=== PATIENT | male | born 1955 | race Caucasian/White ===

== ENCOUNTER 2016-12-30 22:54 | Emergency (ER) | payer SELFPAY ==
[2016-12-30] MEDS ORDERED: NS 0.9% 1000 ML* 1,000 ML IV ONE (23:48)
[2016-12-31 00:12] LABS: Hematocrit 42 % (42-52); Mean Corpuscular HGB Conc 36 g/dl (31-36); Mean Corpuscular Hemoglobin 32 pg (27-31); Mean Corpuscular Volume 89 fL (80-94); Mean Platelet Volume 9 um3 (7.4-10.4); Red Cell Distribution Width 14 % (10.5-15); White Blood Count 9.2 10^3/ul (3.5-10.8)
[2016-12-31 00:21] LABS: ALT 14 U/L (7-52); Albumin 4.3 g/dL (3.2-5.2); Alkaline Phosphatase 66 U/L (34-104); BUN/Creatinine Ratio 16.1 (8-20); Blood Urea Nitrogen 19 mg/dL (6-24); CO2 Carbon Dioxide 25 mmol/L (22-32); Calcium 9.3 mg/dL (8.6-10.3); Chloride 105 mmol/L (101-111); Globulin 2.6 g/dL (2-4); Glucose 141 mg/dL (70-100); Magnesium 2.5 mg/dL (1.9-2.7); Sodium 136 mmol/L (133-145); Total Protein 6.9 g/dL (6.4-8.9)
[2016-12-31 01:09] LABS: Anion Gap 6 mmol/L (2-11)
[2016-12-31 03:10] VITALS: BP 124/47
--- NOTE | 2016-12-31 03:44 | ED ---
Sally Day Rebecca, scribed for Connor Short MD on 12/30/16 at 2342 . Lower Extremity - HPI Summary HPI Summary: Pt is a 61 y/o M BIBA who presents to ED c/o L calf pain. Sx have been present intermittently for "quite a while," worsening tonight at approximately 2000. Pain is characterized as cramping and continues to be intermittent, ranked severe (8/10) upon triage and not present upon evaluation. Sx aggravated and alleviated by nothing and is not brought on by certain movements. Denies cold feet, abdominal pain and edema. There are no symptoms on the RLE. Pt is not on a diuretic. - History of Current Complaint Chief Complaint: EDExtremityLower Stated Complaint: LOWER LEG CRAMPS Time Seen by Provider: 12/30/16 23:37 Hx Obtained From: Patient Onset/Duration: Worse Since - Today Severity Initially: Severe Severity Currently: None Pain Intensity: 0 Pain Scale Used: 0-10 Numeric Timing: Intermittent Location: Is Discrete @ - L calf Character Of Pain: Spasmodic - Cramping Associated Signs And Symptoms: Negative: Swelling Aggravating Factor(s): Nothing Alleviating Factor(s): Nothing - Allergies/Home Medications Allergies/Adverse Reactions: Allergies Allergy/AdvReac Type Severity Reaction Status Date / Time No Known Allergies Allergy Verified 12/30/16 23:03 PMH/Surg Hx/FS Hx/Imm Hx Endocrine/Hematology History: Denies: Hx Diabetes Cardiovascular History: Denies: Hx Hypertension - Surgical History Surgery Procedure, Year, and Place: back 2008~ - Immunization History Date of Tetanus Vaccine: unk Date of Influenza Vaccine: none Infectious Disease History: No Infectious Disease History: Denies: History Other Infectious Disease, Traveled Outside the [place] in Last 30 Days - Family History Known Family History: Positive: Cardiac Disease, Hypertension - Social History Alcohol Use: None Substance Use Type: Reports: None Smoking Status (MU): Heavy Every Day Tobacco Smoker Amount Used/How Often: 1 PPD Review of Systems Negative: Abdominal Pain Positive: Myalgia - L calf cramping. Negative: Edema Positive: Other - NEGATIVE: cold feet All Other Systems Reviewed And Are Negative: Yes Physical Exam - Summary Physical Exam Summary: The patient is well-nourished in no acute distress and in no acute pain. The skin is warm and dry and skin color reflects adequate perfusion. HEENT: The head is normocephalic and atraumatic. The pupils are equal and reactive. The conjunctivae are clear and without drainage. Nares are patent and without drainage. Mouth reveals dry mucous membranes and the throat is without erythema and exudate. The external ears are intact. The ear canals are patent and without drainage. The tympanic membranes are intact. Neck is supple with full range of motion and non-tender. Respiratory: Chest is non-tender. Lungs are clear to auscultation and breath sounds are symmetrical and equal. Cardiovascular: Hear is regular rate and rhythm. There is no murmur or rub auscultated. There is no peripheral edema and pulses are symmetrical and equal. Abdomen: The abdomen is soft and non-tender with no bruits. There are normal bowel sounds heard in all four quadrants and there is no organomegaly palpated. Musculoskeletal: There is no back pain noted. Extremities are non-tender with full range of motion. There is good capillary refill. There is no peripheral edema. Symmetrical femoral pulses and good doralis pedis pulses and posterior tibial pulses. The foot is not cool t touch and has a good popliteal pulse with good capillary refill and FORM. The LLE is not swollen and not cyanotic. He did havesome involuntary twitching noted of his leg. Neurological: Patient is alert and oriented to person, place and time. The patient has symmetrical motor strength in all four extremities. Psychiatric: The patient has an appropriate affect and does not exhibit any anxiety or depression. Triage Information Reviewed: Yes Vital Signs On Initial Exam: Initial Vitals Temp Pulse Resp BP Pulse Ox 98.8 F 110 18 188/87 97 12/30/16 22:59 12/30/16 22:59 12/30/16 22:59 12/30/16 22:59 12/30/16 22:59 Vital Signs Reviewed: Yes - [place] Coma Scale Coma Scale Total: 15 Diagnostics - Vital Signs Vital Signs Temp Pulse Resp BP Pulse Ox 12/30/16 22:59 98.8 F 110 18 188/87 97 - Laboratory Lab Results: Lab Results 12/30/16 12/30/16 12/30/16 Range/Units 23:50 23:50 23:50 WBC 9.2 (3.5-10.8) 10^3/ul RBC 4.70 (4.0-5.4) 10^6/ul Hgb 15.0 (14.0-18.0) g/dl Hct 42 (42-52) % MCV 89 (80-94) fL MCH 32 H (27-31) pg MCHC 36 (31-36) g/dl RDW 14 (10.5-15) % Plt Count 274 (150-450) 10^3/ul MPV 9 (7.4-10.4) um3 Neut % (Auto) 68.5 (38-83) % Lymph % (Auto) 15.5 L (25-47) % [place] % (Auto) 12.1 H (1-9) % Eos % (Auto) 3.2 (0-6) % Baso % (Auto) 0.7 (0-2) % Absolute Neuts (auto) 6.3 (1.5-7.7) 10^3/ul Absolute Lymphs (auto) 1.4 (1.0-4.8) 10^3/ul Absolute Monos (auto) 1.1 H (0-0.8) 10^3/ul Absolute Eos (auto) 0.3 (0-0.6) 10^3/ul Absolute Basos (auto) 0.1 (0-0.2) 10^3/ul Absolute Nucleated RBC 0 10^3/ul Nucleated RBC % 0 Sodium 136 (133-145) mmol/L Potassium TNP Chloride 105 (101-111) mmol/L Carbon Dioxide 25 (22-32) mmol/L Anion Gap 6 (2-11) mmol/L BUN 19 (6-24) mg/dL Creatinine 1.18 H (0.67-1.17) mg/dL Est GFR ( Amer) 81.0 (>60) Est GFR (Non-Af Amer) 63.0 (>60) BUN/Creatinine Ratio 16.1 (8-20) Glucose 141 H (70-100) mg/dL Lactic Acid 1.9 (0.5-2.0) mmol/L Calcium 9.3 (8.6-10.3) mg/dL Magnesium 2.5 (1.9-2.7) mg/dL Total Bilirubin 0.40 (0.2-1.0) mg/dL AST TNP ALT 14 (7-52) U/L Alkaline Phosphatase 66 (34-104) U/L C-Reactive Protein 17.10 H (< 5.00) mg/L Total Protein 6.9 (6.4-8.9) g/dL Albumin 4.3 (3.2-5.2) g/dL Globulin 2.6 (2-4) g/dL Albumin/Globulin Ratio 1.7 (1-3) Result Diagrams: 12/30/16 23:50 12/30/16 23:50 Lab Statement: Any lab studies that have been ordered have been reviewed, and results considered in the medical decision making process. Re-Evaluation - Re-Evaluation First Eval Re-Evaluation Time: 02:35 Change: Improved Comment: Pt is feeling significantly better. Lower Extremity Course/Dx - Course Assessment/Plan: Pt is a 61 y/o M BIBA who presents to ED c/o L calf pain. Sx have been present intermittently for "quite a while," worsening tonight at approximately 2000. Pain is characterized as cramping and continues to be intermittent, ranked severe (8/10) upon triage and not present upon evaluation. Sx aggravated and alleviated by nothing and is not brought on by certain movements. Denies cold feet, abdominal pain and edema. There are no symptoms on the RLE. Pt is not on a diuretic. In the ED course, pt received fluids which improved sx. He will be D/C to home with Dx of dehydration and leg cramping with a follow up with a PCP. He understands and agrees. Eleated BP noted and advised to f/u. - Diagnoses Differential Diagnosis/HQI/PQRI: Positive: Other - metabolic abnormality Provider Diagnoses: Leg cramps, Dehydration Discharge - Discharge Plan Condition: Stable Disposition: HOME Patient Education Materials: Leg Cramps (ED) Referrals: Santo Bautista MD [Medical Doctor] - 3 Days The documentation as recorded by the Sally pagan Rebecca accurately reflects the service I personally performed and the decisions made by me, Connor Short MD.
== END 2016-12-31 03:11 | disposition home or self-care (01) ==
LOC: ED 22:54
DX: R25.2 Cramp and spasm (principal); E86.0 Dehydration; F17.210 Nicotine dependence, cigarettes, uncomplicated
CPT/HCPCS: 36415; 80053; 83605; 83735; 85025; 86140; 96360; 99283

== ENCOUNTER 2017-07-09 19:03 | Emergency (ER) | payer SELFPAY ==
[2017-07-09 19:15] VITALS: BP 144/79
--- NOTE | 2017-07-09 19:51 | UC ---
Skin Complaint HPI - HPI Summary HPI Summary: Itchy, crusted lesions all over trunk with severe itching. Started in the middle of back with larger areas, spread all over the rest of back and onto abd and face. Lesions seem to drain after showers. Pt works at odd jobs, works around cars, 2 days prior to rash got black rust paint all over skin. Said there is no way to remove it, just need to let skin oils loosen it. - History of Current Complaint Chief Complaint: UCSkin Time Seen by Provider: 07/09/17 19:16 Stated Complaint: RASH ALL OVER Hx Obtained From: Patient, Family/Care Services Manager Onset/Duration: Gradual Onset, Lasting Weeks, Still Present Skin Exposure Onset/Duration: Weeks Ago Timing: Constant Onset Severity: Mild Current Severity: Moderate Pain Intensity: 0 Location: Diffuse Character: Pruritus, Redness, Raised Aggravating Factor(s): Clothing, Touch Alleviating Factor(s): Nothing Associated Signs & Symptoms: Positive: Rash - Allergy/Home Medications Allergies/Adverse Reactions: Allergies Allergy/AdvReac Type Severity Reaction Status Date / Time bee venom protein (honey bee) Allergy Severe HIVES, Verified 07/09/17 19:15 SWELLING Review of Systems Constitutional: Negative Skin: Rash Eyes: Negative ENT: Negative Respiratory: Negative Cardiovascular: Negative Gastrointestinal: Negative Genitourinary: Negative Motor: Negative Neurovascular: Negative Musculoskeletal: Negative Neurological: Negative Psychological: Negative Is Patient Immunocompromised?: No All Other Systems Reviewed And Are Negative: Yes PMH/Surg Hx/FS Hx/Imm Hx Previously Healthy: Yes - Surgical History Surgical History: Yes Surgery Procedure, Year, and Place: back 2008~, HEART ABLATION - Family History Known Family History: Positive: Cardiac Disease, Hypertension - Social History Occupation: Employed Part-time Lives: With Family Alcohol Use: None Substance Use Type: None Smoking Status (MU): Current Every Day Smoker Type: Cigarettes Amount Used/How Often: 1 PPD - Immunization History Most Recent Tetanus Shot: unknown Physical Exam Triage Information Reviewed: Yes Appearance: Well-Appearing, No Pain Distress, Well-Nourished Vital Signs: Initial Vital Signs Temp 98 F 07/09/17 19:11 Pulse 85 07/09/17 19:11 Resp 16 07/09/17 19:11 BP 144/79 07/09/17 19:11 Pulse Ox 100 07/09/17 19:11 Vital Signs Reviewed: Yes Eye Exam: Normal Eyes: Positive: Conjunctiva Clear ENT: Positive: Pharynx normal, TMs normal. Negative: Nasal congestion Dental Exam: Other - edentulous Neck exam: Normal Respiratory Exam: Normal Respiratory: Positive: Chest non-tender, Lungs clear, Normal breath sounds, No respiratory distress, No accessory muscle use Cardiovascular Exam: Normal Cardiovascular: Positive: RRR, No Murmur Musculoskeletal Exam: Normal Neurological Exam: Normal Neurological: Positive: Alert Psychological Exam: Normal Skin Exam: Other - Multiple raised red papules over back, abd, few on face. Some confluent, many excoriated, some with pale crust and drainage. Course/Dx - Diagnoses Provider Diagnoses: atopic dermatitis. impetigo Discharge - Discharge Plan Condition: Stable Disposition: HOME Referrals: No Primary Care Phys,NOPCP [Primary Care Provider] -
[2017-07-09] MEDS ORDERED: predniSONE TAB* 50 MG PO ONE (20:03)
[2017-07-09] MEDS ORDERED: Cephalexin CAP* 500 MG PO ONE (20:03)
[2017-07-09] MEDS ORDERED: predniSONE TAB* 10 MG PO ONE (20:08)
== END 2017-07-09 20:16 | disposition home or self-care (01) ==
LOC: UCEAST 19:03
DX: L20.9 Atopic dermatitis, unspecified (principal); L01.00 Impetigo, unspecified; Z91.030 Bee allergy status; F17.210 Nicotine dependence, cigarettes, uncomplicated
CPT/HCPCS: 99212; A9270-GY; G0463; J7512

== ENCOUNTER 2017-07-15 16:29 | Emergency (ER) | payer SELFPAY ==
[2017-07-15 17:01] VITALS: BP 137/86
[2017-07-15] MEDS ORDERED: predniSONE TAB* 20 MG ONE (17:22)
[2017-07-15] MEDS ORDERED: hydrOXYzine HCL TAB* 25 MG ONE (17:23)
[2017-07-15] MEDS ORDERED: predniSONE TAB* 20 MG PO ONE (17:25)
[2017-07-15] MEDS ORDERED: hydrOXYzine HCL TAB* 25 MG PO ONE (17:26)
--- NOTE | 2017-07-15 20:36 | UC ---
Brandin Day Natalie, scribed for Bradley Heredia MD on 07/15/17 at 1656 . Skin Complaint HPI - HPI Summary HPI Summary: The pt is a 62 y/o M presenting to [facility] c/o itchy, red rash starting a week ago , worsening in the last few days. The pt came to [facility] last week for a rash that started on his fingers s/p having paint all over his body at work. He was prescribed Prednisone, Keflex, and Bactroban. The Bactroban causes a burning and itching sensation. The rash has worsened, moving to his arms, back, chest, and abdomen. - History of Current Complaint Time Seen by Provider: 07/15/17 16:42 Stated Complaint: RASH Hx Obtained From: Patient Onset/Duration: Sudden Onset, Lasting Days - started a week ago Skin Exposure Onset/Duration: Days Ago Onset Severity: Mild Current Severity: Moderate Pain Scale Used: 0-10 Numeric Location: Diffuse - hands, arms, back, chest, abd Aggravating Factor(s): Other - Bactroban Associated Signs & Symptoms: Positive: Rash. Negative: Difficulty Breathing - Allergy/Home Medications Allergies/Adverse Reactions: Allergies Allergy/AdvReac Type Severity Reaction Status Date / Time bee venom protein (honey bee) Allergy Severe HIVES, Verified 07/15/17 17:02 SWELLING Review of Systems Skin: Other - itchy, red rash on chest, back, arms, abd Respiratory: Other - NEGATIVE: difficulty breathing All Other Systems Reviewed And Are Negative: Yes PMH/Surg Hx/FS Hx/Imm Hx - Surgical History Surgical History: Yes Surgery Procedure, Year, and Place: back 2008~, HEART ABLATION - Family History Known Family History: Positive: Cardiac Disease, Hypertension - Social History Alcohol Use: None Substance Use Type: None Smoking Status (MU): Current Every Day Smoker Type: Cigarettes Amount Used/How Often: 1 PPD - Immunization History Most Recent Tetanus Shot: unknown Physical Exam Triage Information Reviewed: Yes Appearance: Well-Appearing, No Pain Distress Vital Signs: Initial Vital Signs Temp 97.1 F 07/15/17 16:57 Pulse 105 07/15/17 16:57 Resp 16 07/15/17 16:57 BP 137/86 07/15/17 16:57 Pulse Ox 99 07/15/17 16:57 Vital Signs Reviewed: Yes Eyes: Positive: Other: - EOMI, OSKAR ENT: Positive: Normal ENT inspection Neck: Positive: Supple, Nontender Respiratory: Positive: Other: - CTA, breath sounds present Cardiovascular: Positive: RRR Abdomen Description: Positive: Nontender, Soft Bowel Sounds: Positive: Present Musculoskeletal Exam: Normal Musculoskeletal: Positive: Strength Intact, ROM Intact Neurological: Positive: Other: - normal, sensory/motor intact, A&O x3 Psychological: Positive: Other: - affect/mood appropriate Skin: Positive: Other - warm, dry, diffuse erythematous 1 cm in diameter raised rash, no drainage, blanching, some are confluent Course/Dx - Course Course Of Treatment: Medications reviewed. Allergies noted. BP noted and advised to follow up with PCP. PATIENT REPORTS RASH IS PURITIC AND STARTED AFTER EXPOSURE TO PAINT. NO DRAINAGE FROM THE RASH. PATIENT FEELS WELL OTHERWISE. DOES NOT FEEL THE MUPIROCIN OINTMENT HAS HELPED. THE PLAN TODAY IS TO INCREASE THE PREDNISONE TO 60MG PO QD AND ADD ATARAX AND STOP THE OTHER MEDICATIONS. ALSO, F/U PMD AND DERMATOLOGY. RETURN IF WORSE. - Diagnoses Provider Diagnoses: RASH Discharge - Sign-Out/Discharge Documenting (check all that apply): Discharge - Discharge Plan Condition: Stable Disposition: HOME Discharge Disposition Comment: The pt will be discharged home. Prescriptions: hydrOXYzine HCL TAB* [Atarax 25 MG TAB*] 25 mg PO QID PRN #40 tab PRN Reason: Itching predniSONE TAB* [Deltasone TAB*] 40 mg PO DAILY #10 tab Patient Education Materials: Acute Rash (ED) Referrals: [facility] [Provider Group] [facility] [Outside] Mark Osei MD [Medical Doctor] - Tatianna Ohara [Medical Doctor] - Venita Fuchs MD [Medical Doctor] - Additional Instructions: FOLLOW UP WITH YOUR PRIMARY CARE DOCTOR AND DERMATOLOGY. START THE HYDROXYZINE 25MG EVERY 6 HOURS NEEDED AND THE PREDNISONE. START THE PREDNISONE 60MG A DAY FOR 5 DAYS. STOP ALL OTHER MEDICATIONS. GO TO THE EMERGENCY DEPARTMENT FOR ANY WORSENING OF YOUR CONDITION; DIFFICULTY WITH BREATHING OR SWALLOWING OR QUESTIONS OR CONCERNS. YOUR BLOOD PRESSURE WAS ELEVATED TODAY; FOLLOW UP WITH YOUR PRIMARY CARE DOCTOR WITHIN ONE WEEK. - Billing Disposition and Condition Condition: STABLE Disposition: HOME The documentation as recorded by the Brandin pagan Natalie accurately reflects the service I personally performed and the decisions made by me, Bradley Heredia MD.
== END 2017-07-15 17:05 | disposition home or self-care (01) ==
LOC: UCEAST 16:29
DX: R21 Rash and other nonspecific skin eruption (principal); R03.0 Elevated blood-pressure reading, without diagnosis of hypertension; F17.210 Nicotine dependence, cigarettes, uncomplicated
CPT/HCPCS: 99213; A9270-GY; G0463; J7512

== ENCOUNTER 2017-07-21 13:49 | Emergency (ER) | payer SELFPAY ==
[2017-07-21 14:30] VITALS: BP 132/67
[2017-07-21] MEDS ORDERED: Acyclovir* 200 MG CAP PO ONE (15:10)
[2017-07-21] MEDS ORDERED: Famotidine TAB* 20 MG PO ONE (15:11)
[2017-07-21] MEDS ORDERED: predniSONE TAB* 10 MG PO ONE (15:12)
[2017-07-21] MEDS ORDERED: Acyclovir* 200 MG CAP ONE (15:33)
--- NOTE | 2017-07-21 16:14 | UC ---
Skin Complaint HPI - HPI Summary HPI Summary: 4 weeks of worsening body rash---has tried keflex, prednisone, otc treatments, unknown exposures--no fevers, discharge - History of Current Complaint Chief Complaint: UCSkin Time Seen by Provider: 07/21/17 14:49 Stated Complaint: SKIN COMPLAINT Hx Obtained From: Patient Onset/Duration: Gradual Onset, Lasting Weeks - 4, Worse Since - daily Timing: Constant Onset Severity: Moderate Current Severity: Severe Pain Intensity: 4 Pain Scale Used: 0-10 Numeric Location: Diffuse Character: Pruritus, Redness, Raised, Painful - itchy Aggravating Factor(s): Nothing Alleviating Factor(s): Nothing Associated Signs & Symptoms: Positive: Negative - Allergy/Home Medications Allergies/Adverse Reactions: Allergies Allergy/AdvReac Type Severity Reaction Status Date / Time bee venom protein (honey bee) Allergy Severe HIVES, Verified 07/15/17 17:02 SWELLING Review of Systems Constitutional: Negative Skin: Rash Eyes: Negative ENT: Negative Respiratory: Negative Cardiovascular: Negative Gastrointestinal: Negative Genitourinary: Negative Motor: Negative Neurovascular: Negative Musculoskeletal: Negative Neurological: Negative Psychological: Negative Is Patient Immunocompromised?: No All Other Systems Reviewed And Are Negative: Yes PMH/Surg Hx/FS Hx/Imm Hx Previously Healthy: No - Surgical History Surgical History: Yes Surgery Procedure, Year, and Place: back 2008~, HEART ABLATION - Family History Known Family History: Positive: Cardiac Disease, Hypertension - Social History Occupation: Disabled Lives: With Family Alcohol Use: None Substance Use Type: None Smoking Status (MU): Current Every Day Smoker Type: Cigarettes Amount Used/How Often: 1 PPD Have You Smoked in the Last Year: Yes Household Exposure Type: Cigarettes Cessation Counseling: Patient Advised to Stop - Immunization History Most Recent Tetanus Shot: unknown Physical Exam Triage Information Reviewed: Yes Appearance: Ill-Appearing - mild, Pain Distress - sore and itching skin, Thin Vital Signs: Initial Vital Signs Temp 98.5 F 07/21/17 14:25 Pulse 92 07/21/17 14:25 Resp 18 07/21/17 14:25 BP 132/67 07/21/17 14:25 Pulse Ox 97 07/21/17 14:25 Vital Signs Reviewed: Yes Eye Exam: Normal Eyes: Positive: Conjunctiva Clear ENT Exam: Normal ENT: Positive: Normal ENT inspection, Hearing grossly normal, TMs normal, Uvula midline. Negative: Nasal congestion, Trismus, Muffled voice, Hoarse voice Dental Exam: Other - no teeth Neck exam: Normal Neck: Positive: Supple, Nontender, No Lymphadenopathy Respiratory Exam: Normal Respiratory: Positive: Chest non-tender, Lungs clear, Normal breath sounds, No respiratory distress, No accessory muscle use Cardiovascular Exam: Normal Cardiovascular: Positive: RRR, No Murmur, Pulses Normal, Brisk Capillary Refill Musculoskeletal Exam: Normal Musculoskeletal: Positive: Strength Intact, ROM Intact, No Edema Neurological Exam: Normal Neurological: Positive: Alert Psychological Exam: Normal Skin: Positive: Other - patches and signgle erythema areas on skin, no pustulas , vesicles and scabbed areas noted, area are raised and red---no relief with antibiotic, prednisone, bactroban Course/Dx - Course Course Of Treatment: acyclovir, long taper of prednisone, pepcid, zyrtec, arianna, cool baths---follow with dermatology - Diagnoses Provider Diagnoses: Herpetic Excema - Physician Notification/Consults Discussed Patient Care With: Lopez Bolden Discharge - Sign-Out/Discharge Documenting (check all that apply): Discharge - Discharge Plan Condition: Stable Disposition: HOME Prescriptions: Acyclovir* [Zovirax 400 MG TAB*] 400 mg PO 5ID #35 tab Famotidine TAB 40 MG(NF) [Pepcid TAB 40 MG(NF)] 40 mg PO DAILY #28 tab Fexofenadine (NF) [Arianna (NF)] 60 mg PO DAILY #28 tab predniSONE TAB* [Deltasone TAB*] 10 mg PO DAILY #42 tab Patient Education Materials: Contact Dermatitis (ED) Referrals: Mark Osei MD [Medical Doctor] - As Soon As Possible (castillo) - Billing Disposition and Condition Condition: STABLE Disposition: HOME
== END 2017-07-21 15:44 | disposition home or self-care (01) ==
LOC: UCCORT 13:49
DX: B00.0 Eczema herpeticum (principal); F17.210 Nicotine dependence, cigarettes, uncomplicated
CPT/HCPCS: 99213; A9270-GY; G0463; J7512

== ENCOUNTER 2017-07-25 18:29 | Emergency (ER) | payer SELFPAY ==
[2017-07-25 21:34] VITALS: BP 156/73
--- NOTE | 2017-07-25 21:50 | UC ---
Skin Complaint HPI - HPI Summary HPI Summary: Pt present with erythematous, pruritic confluent rash on upper torso that began two months ago. Pt has been see at [facility] 2 X's and [facility] 2X[facility]. Pt has not follow ed up with PCP , or data modeler. Pt has been put on steroids and antihistamines with no improvement. - History of Current Complaint Chief Complaint: UCSkin Time Seen by Provider: 07/25/17 21:36 Stated Complaint: RASH Hx Obtained From: Patient Onset/Duration: Gradual Onset, Lasting Weeks, Still Present, Worse Since - onset Skin Exposure Onset/Duration: Weeks Ago Timing: Constant Onset Severity: Moderate Current Severity: Severe Pain Intensity: 9 Location: Diffuse Character: Pruritus, Pain, Redness, Raised Aggravating Factor(s): Nothing Alleviating Factor(s): Nothing Associated Signs & Symptoms: Positive: Rash - Allergy/Home Medications Allergies/Adverse Reactions: Allergies Allergy/AdvReac Type Severity Reaction Status Date / Time bee venom protein (honey bee) Allergy Severe HIVES, Verified 07/25/17 21:27 SWELLING Home Medications: Home Medications diphenhydrAMINE HCl [Benadryl Allergy 25 MG CAP] 25 mg PO Q4H 07/25/17 [History Confirmed 07/25/17] Review of Systems Constitutional: Negative Skin: Rash Eyes: Negative ENT: Negative Respiratory: Negative Cardiovascular: Negative Gastrointestinal: Negative Genitourinary: Negative Motor: Negative Neurovascular: Negative Musculoskeletal: Negative Neurological: Negative Psychological: Negative Is Patient Immunocompromised?: No All Other Systems Reviewed And Are Negative: Yes PMH/Surg Hx/FS Hx/Imm Hx Previously Healthy: Yes - Surgical History Surgical History: Yes Surgery Procedure, Year, and Place: back 2008~, HEART ABLATION - Family History Known Family History: Positive: Cardiac Disease, Hypertension - Social History Occupation: Retired Lives: With Family Alcohol Use: None Substance Use Type: None Smoking Status (MU): Current Every Day Smoker Type: Cigarettes Amount Used/How Often: 1 PPD Have You Smoked in the Last Year: Yes Household Exposure Type: Cigarettes - Immunization History Most Recent Tetanus Shot: unknown Physical Exam Triage Information Reviewed: Yes Appearance: Ill-Appearing, Other: - unkempt Vital Signs: Initial Vital Signs Temp 99 F 07/25/17 21:25 Pulse 84 07/25/17 21:25 Resp 18 04/04/18 21:25 BP 156/73 07/25/17 21:25 Pulse Ox 99 07/25/17 21:25 Vital Signs Reviewed: Yes Eye Exam: Normal ENT Exam: Normal Neck exam: Normal Respiratory Exam: Normal Cardiovascular Exam: Normal Abdominal Exam: Other - rash Musculoskeletal Exam: Normal Neurological Exam: Normal Psychological Exam: Normal Skin: Positive: rashes - confluent, tania tracts, erythematous, scaly, confluent rash, possible, scabies, plaque psoriasis. Course/Dx - Course Course Of Treatment: I discussed with the pt the need to follow up immediately with a data modeler. Pt verbalized understanding and agreed toplan of care - Differential Diagnoses - Skin Complaint Differential Diagnoses: Cellulitis, Contact Dermatitis, Scabies - Diagnoses Provider Diagnoses: scabies Discharge - Sign-Out/Discharge Documenting (check all that apply): Discharge - Discharge Plan Condition: Stable Disposition: HOME Prescriptions: Permethrin 5% CREAM* 1 applic TOPICAL SEE INSTRUCTIONS #1 tube Patient Education Materials: Scabies (ED) Referrals: [facility] [Outside] Tatianna Ohara [Medical Doctor] - No Primary Care Phys,NOPCP [Primary Care Provider] - Additional Instructions: Please establish care with a PCP as soon as possible. Please follow up with a data modeler as soon as possible. - Billing Disposition and Condition Condition: STABLE Disposition: HOME
== END 2017-07-25 22:06 | disposition home or self-care (01) ==
LOC: UCCORT 18:29
DX: B86 Scabies (principal); F17.210 Nicotine dependence, cigarettes, uncomplicated
CPT/HCPCS: 99212; G0463

== ENCOUNTER 2018-02-03 17:32 | Emergency (ER) | payer SELFPAY ==
[2018-02-03 18:11] VITALS: BP 133/83
--- NOTE | 2018-02-03 18:30 | UC ---
Upper Extremity HPI - HPI Summary HPI Summary: R shoulder and neck pain x 3 days after sleeping in recliner. 'feels like a crick in my neck'. sleeps on recliner often. denies accident/fall. - History of Current Complaint Chief Complaint: UCUpperExtremity Stated Complaint: NECK AND SHOULDER PAIN Time Seen by Provider: 02/03/18 18:02 Hx Obtained From: Patient Onset/Duration: Sudden Onset Severity Initially: Mild Severity Currently: Mild Pain Intensity: 8 Character: Stiffness Aggravating Factor(s): Movement Alleviating Factor(s): Nothing Associated Signs And Symptoms: Positive: Negative - Risk Factors Non-Orthopedic Risk Factor: Negative Septic Arthritis Risk Factor: Negative - Allergies/Home Medications Allergies/Adverse Reactions: Allergies Allergy/AdvReac Type Severity Reaction Status Date / Time bee venom protein (honey bee) Allergy Severe HIVES, Verified 02/03/18 18:12 SWELLING PMH/Surg Hx/FS Hx/Imm Hx - Additional Past Medical History Additional PMH: denies - Surgical History Surgical History: Yes Surgery Procedure, Year, and Place: back 2008~, [facility] - Family History Known Family History: Positive: Cardiac Disease, Hypertension - Social History Alcohol Use: None Substance Use Type: None Smoking Status (MU): Current Every Day Smoker Type: Cigarettes Amount Used/How Often: 1 PPD Have You Smoked in the Last Year: Yes Household Exposure Type: Cigarettes - Immunization History Most Recent Tetanus Shot: unknown Review of Systems Constitutional: Negative Skin: Negative Respiratory: Negative Cardiovascular: Negative Neurovascular: Negative Musculoskeletal: Arthralgia Neurological: Negative Is Patient Immunocompromised?: No All Other Systems Reviewed And Are Negative: Yes Physical Exam Triage Information Reviewed: Yes Appearance: Well-Appearing Vital Signs: Initial Vital Signs Temp 98.4 F 02/03/18 18:07 Pulse 101 02/03/18 18:07 Resp 16 02/03/18 18:07 BP 133/83 02/03/18 18:07 Pulse Ox 96 02/03/18 18:07 Vital Signs Reviewed: Yes Respiratory Exam: Normal Cardiovascular Exam: Normal Musculoskeletal: Positive: Strength Intact, ROM Intact, Other: - Mild tenderness between scapula and spine, R side. No redness or mass. soreness w/ movement of neck. neg. lift off test. Skin Exam: Other - +tattoos Upper Extremity Course/Dx - Course Course Of Treatment: R neck/shoulder pain, acute. advised stretching , massage. No joint deficiencies. - Differential Dx/Diagnosis Differential Diagnosis/HQI/PQRI: Bursitis, Contusion, Strain, Sprain Provider Diagnoses: neck/shoulder strain, mild, acute: R side Discharge - Sign-Out/Discharge Documenting (check all that apply): Patient Departure All imaging exams completed and their final reports reviewed: No Studies - Discharge Plan Condition: Good Disposition: HOME Prescriptions: Cyclobenzaprine TAB* [Flexeril 10 MG TAB*] 10 mg PO TID PRN #9 tab PRN Reason: Pain Patient Education Materials: Cervical Strain (ED) Referrals: No Primary Care Phys,NOPCP [Primary Care Provider] - Additional Instructions: use muscle relaxer , massage , and stretching. please find a pcp to focus on your chronic conditions. - Billing Disposition and Condition Condition: GOOD Disposition: Home
== END 2018-02-03 18:38 | disposition home or self-care (01) ==
LOC: UCEAST 17:32
DX: S16.1XXA Strain of muscle, fascia and tendon at neck level, initial encounter (principal); S46.911A Strain of unspecified muscle, fascia and tendon at shoulder and upper arm level, right arm, initial encounter; F17.210 Nicotine dependence, cigarettes, uncomplicated; X58.XXXA Exposure to other specified factors, initial encounter; Y92.9 Unspecified place or not applicable; Z91.030 Bee allergy status
CPT/HCPCS: 99212; G0463

== ENCOUNTER 2018-05-07 15:29 | Emergency (ER) | payer SELFPAY ==
[2018-05-07 15:55] VITALS: BP 176/57
[2018-05-07] MEDS ORDERED: Tetan/Diph/Pertus SYR(Tdap)* 0.5 ML SYR(BOOSTRIX) use SYR IM ONE (16:09)
[2018-05-07] MEDS ORDERED: Lidocaine 1%* 5 ML VIAL INJ ONE (16:09)
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
== END 2018-05-07 16:38 | disposition home or self-care (01) ==
LOC: UCCORT 15:29
DX: W31.2XXA Contact with powered woodworking and forming machines, initial encounter (principal); Y92.9 Unspecified place or not applicable; S51.811A Laceration without foreign body of right forearm, initial encounter; F17.210 Nicotine dependence, cigarettes, uncomplicated
CPT/HCPCS: 12032; 90471; 90715; 99211; G0463

== ENCOUNTER 2019-06-07 13:51 | Emergency (ER) | payer SELFPAY ==
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
[2019-06-07 14:42] VITALS: BP 153/81
== END 2019-06-07 15:35 | disposition short-term general hospital (02) ==
LOC: UCCORT 13:51
DX: R53.81 Other malaise (principal); I10 Essential (primary) hypertension; R94.31 Abnormal electrocardiogram [ECG] [EKG]; R06.02 Shortness of breath; F17.210 Nicotine dependence, cigarettes, uncomplicated; Z91.030 Bee allergy status
CPT/HCPCS: 93005; 99212; G0463

== ENCOUNTER 2023-11-26 07:39 | Inpatient (IN) ==
[2023-11-26 08:04] LABS: ABS Eosinophils 0.4 10^3/uL (0.0-0.5); ABS Lymphocytes 1.7 10^3/uL (1.0-4.8); ABS Neutrophils 3.9 10^3/uL (1.5-7.6); ABS Nucleated RBC 0.01 10^3/ul; Eosinophil % 5.4 %; Hematocrit 41.8 % (38-53); Hemoglobin 14.2 g/dL (13.2-16.3); Lymphocyte % 24.1 %; Mean Corpuscular Hemoglobin 29.5 pg (27-33); Mean Corpuscular Hgb Conc 33.9 g/dL (31-36); Mean Corpuscular Volume 86.9 fL (80-97); Mean Platelet Volume 8.5 fL (7.5-11.2); Nucleated Red Blood Cells % 0.1 %/100WBC (0.0-0.8); Platelet Count 249 10^3/uL (150-450); Red Blood Count 4.81 10^6/uL (4.06-5.63); Red Cell Distribution Width 15.9 % (12-17); White Blood Count 6.9 10^3/uL (3.6-10.2)
[2023-11-26 08:26] LABS: INR 1.04 (0.83-1.13)
[2023-11-26 08:33] LABS: Albumin 3.7 g/dL (3.2-5.2); Albumin/Globulin Ratio 1.6 (1-3); Calcium 8.6 mg/dL (8.6-10.3); Creatinine, Serum 0.74 mg/dL (0.67-1.17); Globulin 2.3 g/dL (2-4); Potassium 4.5 mmol/L (3.5-5.0); Total Bilirubin 0.3 mg/dL (0.2-1.0); eGFR CKD-EPI 99.3 (>60)
[2023-11-26 09:31] LABS: High Sensitivity Troponin 1 Hr 324 pg/mL (<20)
[2023-11-26] MEDS ORDERED: Senna TAB 8.6 mg TAB PO PRN (11:40)
[2023-11-26] MEDS ORDERED: Ondansetron 4 mg VIAL 2 MG/ML 2 ml VIAL IV PRN (11:40)
[2023-11-26] MEDS ORDERED: Polyethylene Glycol 3350 17 GM PACKET PO PRN (11:40)
[2023-11-26] MEDS ORDERED: Regadenoson 0.4 MG/5 ML SYRINGE ONE (12:26)
[2023-11-26] MEDS ORDERED: Aminophylline 25 MG/ML VIAL ONE (12:26)
[2023-11-26] MEDS: CMCS: FLUTICAS/UMECLI/VILANT 200-62.5-25 MDI (NF) INH SCH (13:06)
[2023-11-26] MEDS: Nitroglycerin 0.4 mg/hr PATCH (10 mg) TRANSDERM SCH (15:19)
[2023-11-26 19:22] LABS: High Sensitivity Troponin 1 Hr 488 pg/mL (<20)
[2023-11-26 20:46] LABS: High Sensitivity Troponin 3 Hr 427 pg/mL (<20)
[2023-11-27] MEDS: Sulfur Hexaflouride MICROSPHR 25 MG VIAL IV ONE (07:53)
[2023-11-27] MEDS ORDERED: fentaNYL 100 mcg/2 ml 50 MCG/ML VIAL ONE ×3 (08:06→09:14)
[2023-11-27] MEDS ORDERED: Midazolam 5 mg/5 ml VIAL 1 mg/ml 5 ml VIAL (5 mg) ONE ×2 (08:06→08:17)
[2023-11-27] MEDS ORDERED: Naloxone 0.4 mg VIAL 0.4 mg/ml 1 ml VIAL IV PUSH PRN (08:14)
[2023-11-27] MEDS ORDERED: Flumazenil 0.5 mg/5 ml 0.1 MG/ML 5 ml VIAL IV PRN (08:14)
[2023-11-27] MEDS ORDERED: Heparin 2 UNITS/ML 1000 mls 2,000 ML IV ONE (08:17)
[2023-11-27] MEDS ORDERED: Heparin 1,000 UNIT/ML 10 ml (10,000 UNITS) CATHLAB/DIALYSIS ONE (08:17)
[2023-11-27] MEDS ORDERED: nitroGLYCERIN DRIP 25,000 MCG/250 ML BTL ONE (08:17)
[2023-11-27] MEDS ORDERED: Lidocaine 1% MPF 5 ML VIAL ONE (08:18)
[2023-11-27] MEDS ORDERED: niCARdipine 0.1MG/ML IVPREMIX 20 MG/200 ML BAG IV ONE (08:18)
[2023-11-27] MEDS ORDERED: Iohexol 350 (CONTRAST) 200 ML MDV IV ONE (08:18)
[2023-11-27] MEDS ORDERED: Iohexol 350 (CONTRAST) 100 ML PAK IV ONE (08:18)
[2023-11-27] MEDS ORDERED: Heparin 2 UNITS/ML 1000 mls 1,000 ML IV ONE (08:18)
[2023-11-27] MEDS ORDERED: Prasugrel 10 mg TAB (NF) ONE (09:16)
[2023-11-27] MEDS: Midazolam 10 mg/10 ml VIAL 1 mg/ml 10 ml VIAL (10 mg) IV SLOW PU ONE (14:44)
[2023-11-27] MEDS: fentaNYL 100 mcg/2 ml 50 MCG/ML VIAL IV SLOW PU ONE (14:44)
[2023-11-28 04:37] LABS: ABS Basophils 0.1 10^3/uL (0.0-0.1); ABS Eosinophils 0.3 10^3/uL (0.0-0.5); ABS Lymphocytes 1.5 10^3/uL (1.0-4.8); ABS Neutrophils 6.2 10^3/uL (1.5-7.6); Eosinophil % 3.2 %; Hematocrit 44.2 % (38-53); Hemoglobin 14.9 g/dL (13.2-16.3); Lymphocyte % 16.7 %; Mean Corpuscular Hemoglobin 29.3 pg (27-33); Mean Corpuscular Hgb Conc 33.8 g/dL (31-36); Mean Corpuscular Volume 86.7 fL (80-97); Mean Platelet Volume 8.3 fL (7.5-11.2); Platelet Count 269 10^3/uL (150-450); Red Cell Distribution Width 16.1 % (12-17)
[2023-11-28 05:15] LABS: ALT 16 U/L (7-52); Albumin 3.8 g/dL (3.2-5.2); Albumin/Globulin Ratio 1.6 (1-3); Alkaline Phosphatase 68 U/L (35-149); Anion Gap 5 mmol/L (2-16); Blood Urea Nitrogen 15 mg/dL (6-24); CO2 Carbon Dioxide 22 mmol/L (22-32); Calcium 8.9 mg/dL (8.6-10.3); Chloride 108 mmol/L (101-111); Creatinine, Serum 0.66 mg/dL (0.67-1.17); Globulin 2.4 g/dL (2-4); Glucose 102 mg/dL (70-100); Magnesium 2.1 mg/dL (1.9-2.7); Sodium 135 mmol/L (135-145); Total Bilirubin 0.5 mg/dL (0.2-1.0); Total Protein 6.2 g/dL (6.4-8.9); eGFR CKD-EPI 102.8 (>60)
[2023-11-28] MEDS: Prasugrel 10 mg TAB (NF) PO SCH (08:46)
[2023-11-28 10:07] LABS: Potassium Redraw 4.4 mmol/L (3.5-5.0)
[2023-11-29 05:03] LABS: Hematocrit 49.7 % (38-53); Hemoglobin 16.2 g/dL (13.2-16.3); Mean Corpuscular Hemoglobin 28.2 pg (27-33); Mean Corpuscular Hgb Conc 32.6 g/dL (31-36); Mean Corpuscular Volume 86.6 fL (80-97); Mean Platelet Volume 8.4 fL (7.5-11.2); Platelet Count 259 10^3/uL (150-450); Red Blood Count 5.74 10^6/uL (4.06-5.63); White Blood Count 13.2 10^3/uL (3.6-10.2)
[2023-11-29 07:10] LABS: Potassium 4.8 mmol/L (3.5-5.0)
[2023-11-29 07:11] LABS: Albumin 4.2 g/dL (3.2-5.2); Albumin/Globulin Ratio 1.6 (1-3); Calcium 9.5 mg/dL (8.6-10.3); Creatinine, Serum 0.81 mg/dL (0.67-1.17); Globulin 2.7 g/dL (2-4); Total Bilirubin 0.8 mg/dL (0.2-1.0); Total Protein 6.9 g/dL (6.4-8.9); eGFR CKD-EPI 96.6 (>60)
[2023-11-29] MEDS: Nicotine PATCH 21 MG/24 HR PATCH TRANSDERM SCH (09:04)
[2023-11-29 11:20] VITALS: BP 155/69
[2023-11-29] MEDS ORDERED: Lactated Ringers 1000 ml BAG 500 ML IV ONE (15:56)
== END 2023-11-29 12:29 | disposition home or self-care (01) | DRG 253 ==
LOC: EDHOLD 07:39 → ED 07:39 → MEDTELE 15:35 → ICU 11-27 10:43
PROVIDERS: ADMIT Internal Medicine; ATTEND Internal Medicine

== ENCOUNTER 2023-11-29 15:39 | Inpatient (IN) ==
[2023-11-29 16:26] LABS: ABS Lymphocytes 0.9 10^3/uL (1.0-4.8); ABS Monocytes 0.9 10^3/uL (0.0-1.1); ABS Neutrophils 9.4 10^3/uL (1.5-7.6); ABS Nucleated RBC 0.01 10^3/ul; Hematocrit 50.7 % (38-53); Hemoglobin 16.8 g/dL (13.2-16.3); Lymphocyte % 7.9 %; Mean Corpuscular Hemoglobin 28.7 pg (27-33); Mean Corpuscular Hgb Conc 33.1 g/dL (31-36); Mean Corpuscular Volume 86.8 fL (80-97); Mean Platelet Volume 8.5 fL (7.5-11.2); Nucleated Red Blood Cells % 0.1 %/100WBC (0.0-0.8); Platelet Count 280 10^3/uL (150-450); Red Blood Count 5.85 10^6/uL (4.06-5.63); Red Cell Distribution Width 15.9 % (12-17); White Blood Count 11.2 10^3/uL (3.6-10.2)
[2023-11-29] MEDS: fentaNYL 100 mcg/2 ml 50 MCG/ML VIAL IV SLOW PU ONE (16:49)
[2023-11-29] MEDS: NS 0.9% 500 ml BAG 500 ML IV ONE (16:49)
[2023-11-29 17:01] LABS: Albumin 4.4 g/dL (3.2-5.2); Albumin/Globulin Ratio 1.6 (1-3); Creatinine, Serum 1.13 mg/dL (0.67-1.17); Globulin 2.8 g/dL (2-4); Magnesium 2.2 mg/dL (1.9-2.7); Potassium 4.6 mmol/L (3.5-5.0); Total Bilirubin 0.9 mg/dL (0.2-1.0); Total Protein 7.2 g/dL (6.4-8.9); eGFR CKD-EPI 71.2 (>60)
[2023-11-29 17:15] LABS: TSH Ultra Thyroid Stim Horm 2.93 mcIU/mL (0.34-5.60)
[2023-11-29 17:48] LABS: High Sensitivity Troponin 1 Hr 106 pg/mL (<20)
[2023-11-30] MEDS: Enoxaparin 80 MG/0.8 ML SYR SUBCUT SCH (02:42)
[2023-11-30] MEDS: FLUTICAS/UMECLI/VILANT 200-62.5-25 MDI (NF) INH SCH (07:38)
[2023-11-30 07:45] LABS: ABS Lymphocytes 0.4 10^3/uL (1.0-4.8); Hematocrit 44.9 % (38-53); Hemoglobin 15.5 g/dL (13.2-16.3); Lymphocyte % 4.5 %; Mean Corpuscular Hemoglobin 29.4 pg (27-33); Mean Corpuscular Hgb Conc 34.4 g/dL (31-36); Mean Corpuscular Volume 85.6 fL (80-97); Mean Platelet Volume 8.8 fL (7.5-11.2); Platelet Count 231 10^3/uL (150-450); Red Blood Count 5.25 10^6/uL (4.06-5.63); Red Cell Distribution Width 15.6 % (12-17); White Blood Count 8.4 10^3/uL (3.6-10.2)
[2023-11-30 08:01] LABS: Calcium 8.8 mg/dL (8.6-10.3); Creatinine, Serum 0.99 mg/dL (0.67-1.17); Magnesium 2.1 mg/dL (1.9-2.7); Potassium 4.5 mmol/L (3.5-5.0); eGFR CKD-EPI 83.5 (>60)
[2023-11-30] MEDS: Prasugrel 10 mg TAB (NF) PO SCH (09:26)
[2023-11-30] MEDS: Cholecalciferol (VIT D3) 1,000 unit TAB PO SCH (09:27)
[2023-11-30] MEDS: Sulfur Hexaflouride MICROSPHR 25 MG VIAL IV ONE (10:15)
[2023-11-30] MEDS ORDERED: Senna TAB 8.6 mg TAB PO PRN (20:31)
[2023-11-30] MEDS ORDERED: Magnesium Hydroxide LIQ 30 ML UDC PO PRN (21:05)
[2023-11-30] MEDS ORDERED: Polyethylene Glycol 3350 17 GM PACKET PO PRN (21:05)
[2023-11-30] MEDS: Senna TAB 8.6 mg TAB PO PRN (21:15)
[2023-11-30] MEDS: Magnesium Hydroxide LIQ 30 ML UDC PO SCH (21:17)
[2023-11-30] MEDS: Iohexol 350 (CONTRAST) 500 ML MDV IV ONE (21:17)
[2023-12-01 06:13] LABS: Hematocrit 44.6 % (38-53); Hemoglobin 15.3 g/dL (13.2-16.3); Mean Corpuscular Hemoglobin 29.2 pg (27-33); Mean Corpuscular Hgb Conc 34.3 g/dL (31-36); Mean Corpuscular Volume 85.3 fL (80-97); Mean Platelet Volume 8.4 fL (7.5-11.2); Platelet Count 222 10^3/uL (150-450); Red Blood Count 5.23 10^6/uL (4.06-5.63); Red Cell Distribution Width 15.9 % (12-17); White Blood Count 8.3 10^3/uL (3.6-10.2)
[2023-12-01 06:53] LABS: Calcium 8.7 mg/dL (8.6-10.3); Creatinine, Serum 0.88 mg/dL (0.67-1.17); Magnesium 2.3 mg/dL (1.9-2.7); Potassium 4.6 mmol/L (3.5-5.0); eGFR CKD-EPI 94.2 (>60)
[2023-12-01] MEDS: Enoxaparin 40 MG/0.4 ML SYR SUBCUT SCH (20:48)
[2023-12-02 06:27] LABS: Hematocrit 45.3 % (38-53); Hemoglobin 15.4 g/dL (13.2-16.3); Mean Corpuscular Hemoglobin 29.2 pg (27-33); Mean Corpuscular Hgb Conc 33.9 g/dL (31-36); Mean Corpuscular Volume 86.1 fL (80-97); Mean Platelet Volume 9.2 fL (7.5-11.2); Platelet Count 234 10^3/uL (150-450); Red Blood Count 5.27 10^6/uL (4.06-5.63); Red Cell Distribution Width 15.8 % (12-17); White Blood Count 11.6 10^3/uL (3.6-10.2)
[2023-12-02 06:32] LABS: Creatinine, Serum 0.95 mg/dL (0.67-1.17); Potassium 4.4 mmol/L (3.5-5.0); eGFR CKD-EPI 87.7 (>60)
[2023-12-02 07:57] LABS: ABS Eosinophils 0.1 10^3/uL (0.0-0.5); ABS Lymphocytes 1.1 10^3/uL (1.0-4.8); ABS Monocytes 2.2 10^3/uL (0.0-1.1); ABS Neutrophils 8.2 10^3/uL (1.5-7.6); ABS Nucleated RBC 0.01 10^3/ul; Eosinophil % 0.4 %; Lymphocyte % 9.9 %; Nucleated Red Blood Cells % 0.1 %/100WBC (0.0-0.8)
[2023-12-02 13:43] VITALS: BP 128/77
== END 2023-12-02 16:14 | disposition home or self-care (01) | DRG 312 ==
LOC: ED 15:39 → EDHOLD 15:39 → SUATTDRO 20:25 → MEDTELE 21:54
PROVIDERS: ADMIT Internal Medicine; ATTEND Family Medicine